=== PATIENT | female | born 1990 | race Caucasian/White ===

== ENCOUNTER 2023-05-15 08:24 | Emergency (ER) | payer MEDICAID ==
[~2023-05-15] VITALS: Ht 162.6 cm; Wt 96.0 kg
[2023-05-15] MEDS ORDERED: LACTATED RINGERS 1,000 ML IV SCH (11:30)
[2023-05-15] MEDS ORDERED: DEXT 5%/LR + PITOCIN 20UNITS/L 1,000 ML IV SCH (11:45)
[2023-05-15] MEDS ORDERED: SODIUM CHLORIDE 0.9% IV PRN (12:00)
[2023-05-15] MEDS ORDERED: OXYTOCIN IV PRN (12:00)
[2023-05-15 12:08] LABS: BASOPHILS % 0.2 % (0.0-2.0); EOSINOPHILS % 0.3 % (0.0-5.0); HEMATOCRIT. 39.2 % (36.0-48.0); HEMOGLOBIN. 13.2 g/dL (12.0-16.0); LYMPHOCYTES % 12.5 % (20.0-50.0); MEAN CORPUSCULAR HEMOGLOBIN 29.1 pg (28.0-32.0); MEAN CORPUSCULAR HGB CONC 33.6 g/dL (31.0-37.0); MEAN CORPUSCULAR VOLUME 86.6 fL (81.0-99.0); MEAN PLATELET VOLUME 9.8 fl (7.4-10.4); MONOCYTES % 4.8 % (2.0-8.0); NEUTROPHILS % 82.2 % (40.0-76.0); PLATELET 217 x1000/uL (130-400); RED BLOOD CELL COUNT 4.52 mill/uL (4.2-5.4); RED CELL DISTRIBUTION WIDTH 13.8 % (11.6-14.6); WHITE BLOOD COUNT 13.5 x1000/uL (4.5-11.0)
[2023-05-15] MEDS ORDERED: IBUPROFEN 400MG TABLET PO PRN ×2 (12:15)
[2023-05-15 12:49] LABS: ALANINE AMINOTRANSFERASE 18 IU/L (10-49); ALBUMIN 3.7 g/dL (3.2-4.8); ASPARTATE AMINOTRANSFERASE 24 IU/L (<34); BILIRUBIN TOTAL 0.6 mg/dL (0.1-1.0); CALCIUM 8.6 mg/dL (8.7-10.4); CARBON DIOXIDE 21 mEq/L (21-32); CHLORIDE 102 mEq/L (98-107); CREATININE 0.5 mg/dL (0.6-1.0); GLUCOSE 94 mg/dL (70-105); POTASSIUM 3.7 mEq/L (3.5-5.1); PROTEIN TOTAL 6.7 g/dL (6.0-8.3); SODIUM 135 mEq/L (136-145); UREA NITROGEN BLOOD 7 mg/dL (9-23)
[2023-05-15 13:32] VITALS: BP 107/57; PULSE 72; RESP 18; TEMP 98.4
== END 2023-05-15 13:20 | disposition short-term general hospital (02) ==
LOC: ER 08:24
DX: O26.893 Other specified pregnancy related conditions, third trimester (principal); R10.9 Unspecified abdominal pain; O00.00 Abdominal pregnancy without intrauterine pregnancy; O08.9 Unspecified complication following an ectopic and molar pregnancy; Z3A.38 38 weeks gestation of pregnancy
CPT/HCPCS: 80053; 82962; 85025; 86850; 86900; 86901; 36415; 76815; 96360; 99291; J7120; J7040; Z7610 ×2